=== PATIENT | female | born 2000 | race Caucasian/White ===

== ENCOUNTER 2021-04-16 11:33 | Emergency (ER) | payer OTHER, MEDICAID, SELFPAY ==
[2021-04-16 11:40] VITALS: BP 132/84; PULSE 92; O2SAT 99
[2021-04-16 13:17] VITALS: BP 115/77; PULSE 91; RESP 18; TEMP 36.8; O2SAT 95; BMI 21.9
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
== END 2021-04-16 14:47 | disposition home or self-care (01) ==
PROVIDERS: Emergency Provider Emergency Medicine
DX: S01.511A Laceration without foreign body of lip, initial encounter (principal); V89.2XXA Person injured in unspecified motor-vehicle accident, traffic, initial encounter; Y93.9 Activity, unspecified; Y92.410 Unspecified street and highway as the place of occurrence of the external cause; Y99.9 Unspecified external cause status
CPT/HCPCS: 99283

== ENCOUNTER 2021-11-04 21:50 | Emergency (ER) | payer OTHER, MEDICAID, SELFPAY ==
[2021-11-04 22:43] VITALS: BP 104/72; PULSE 90; RESP 13; TEMP 37.1; O2SAT 99; BMI 22.3
== END 2021-11-05 01:26 | disposition left against medical advice (07) ==
PROVIDERS: Emergency Provider Emergency Medicine
DX: R04.0 Epistaxis (principal)
CPT/HCPCS: 99281